=== PATIENT | male | born 1950 | race American Indian/Alaskan Native ===

== ENCOUNTER 2017-05-20 06:21 | Day surgery (SDC) | payer MEDICARE, OTHER ==
[2017-05-20] MEDS ORDERED: ECOTRIN PO ONE (06:52)
[2017-05-20] MEDS ORDERED: NACL 0.9% 500 ML 500 ML IV SCH (07:00)
[2017-05-20 07:33] LABS: Eosinophils % (Auto) 8.7 % (0.0-4.3); Hemoglobin 12.4 gm/dl (11.8-15.2); Mean Corpuscular HGB Conc 32 % (32-34); Mean Corpuscular Volume 80 fl (84-94); Platelet Count 155 K/mm3 (140-440); Red Blood Count 4.85 M/mm3 (3.65-5.03); Red Cell Distribution Width 17.1 % (13.2-15.2); White Blood Count 6.7 K/mm3 (4.5-11.0)
[2017-05-20 07:36] LABS: Mean Corpuscular Hemoglobin 26 pg (28-32)
[2017-05-20 07:41] LABS: INR 1.3 (0.87-1.13)
[2017-05-20 07:51] LABS: Anion Gap 17 mmol/L; BUN/Creatinine Ratio 19.09; Blood Urea Nitrogen 21 mg/dL (9-20); Calcium 8.6 mg/dL (8.4-10.2); Carbon Dioxide 27 mmol/L (22-30); Chloride 96.9 mmol/L (98-107); Glucose 274 mg/dL (75-100); Potassium 4.3 mmol/L (3.6-5.0); Sodium 137 mmol/L (137-145)
[2017-05-20] MEDS ORDERED: HEPARIN/NS 5000 UNIT/500ML(CATH LAB) 1,000 ML IR ONE (08:54)
[2017-05-20] MEDS ORDERED: NITROGLYCERIN SYRINGE 0 ML ONE (08:55)
[2017-05-20] MEDS ORDERED: XYLOCAINE 2% INFILTRATI ONE (08:55)
[2017-05-20] MEDS ORDERED: VERSED ONE (08:55)
[2017-05-20] MEDS ORDERED: SUBLIMAZE ONE (08:55)
[2017-05-20] MEDS ORDERED: PLAVIX PO ONE (09:00)
[2017-05-20] MEDS ORDERED: ULTRAM PO PRN (09:50)
--- NOTE | 2017-05-20 09:54 | Discharge Summary ---
Short Stay Discharge Plan Activity: advance as tolerated Weight Bearing Status: Partial Weight Bearing Diet: low fat, low cholesterol, low salt Wound: keep clean and dry Special Instructions: no heavy lifting (3 days), hold Metformin (48hrs) Follow up with: ALEXANDRE FABIAN MD [Primary Care Provider] - 7 Days MONTSERRAT GEIGER MD [Staff Physician] - 7 Days
--- NOTE | 2017-05-20 10:22 | Cardiac Catherization Report ---
REASON FOR PROCEDURE: Abnormal thallium stress test. PROCEDURE: The patient was prepped and draped in a sterile fashion after informed consent. The right femoral artery was entered using Seldinger technique followed by placement of a 6-Georgian sheath. Selective left and right coronary angiography was performed using #4 right and left Paul catheters. The pigtail catheter was used for left ventricular angiography. The catheters were removed, sheath removed, and hemostasis achieved using manual compression. The patient was returned to the postprocedure unit in stable condition. There were no complications. FINDINGS: HEMODYNAMICS: Left ventricle end diastolic pressure was 27, following coronary angiography. Ascending aortic pressure was 185/79. There was no significant pressure gradient on pullback across the aortic valve. CORONARY ANGIOGRAPHY: There was a calcified, ulcerated focal 50% stenosis of the mid left main coronary artery. The left anterior descending artery and its diagonal branches contained diffuse mild atherosclerosis. The circumflex artery and its obtuse marginal branches contained diffuse mild atherosclerosis. The right coronary artery was dominant. A stent was visible in the entire length of the mid right coronary artery. There was an 80% stenosis of the proximal right coronary artery, representing proximal border restenosis of the previous stent. Following that, there was diffuse moderate in-stent restenosis. Distally, the right coronary artery was subtotally occluded just after the origin of the posterior descending branch. There was faint antegrade filling of a medium sized posterolateral branch as well as left to right collaterals of this posterolateral branch. The left ventricle was moderately dilated. There was moderately severe left ventricular systolic dysfunction, ejection fraction 30-35%. There was hypo to akinesis of the inferior wall. CONCLUSIONS: 1. Multivessel disease, including significant eccentric, calcified stenosis of the mid left main. 2. Ischemic cardiomyopathy, moderate to moderately severe left ventricular systolic dysfunction, ejection fraction 30-35%. RECOMMENDATION: Coronary artery bypass surgery with targets to the LAD, circumflex system, right posterior descending branch, and the right posterior left ventricular branch. JOB# [id number] HANNY/NTS
[2017-05-20] MEDS ORDERED: CATAPRES PO ONE (10:30)
[2017-05-20] MEDS ORDERED: CATAPRES ONE (11:41)
[2017-05-20] MEDS ORDERED: NACL 0.9% 1000 ML 1,000 ML IV SCH (12:00)
[2017-05-20 14:36] VITALS: BP 133/66
== END 2017-05-20 15:00 | disposition home or self-care (01) ==
LOC: OPU 06:21
PROVIDERS: ATTEND Internal Medicine Cardiovascular Disease
DX: I25.10 Atherosclerotic heart disease of native coronary artery without angina pectoris (principal); I10 Essential (primary) hypertension; E11.9 Type 2 diabetes mellitus without complications; I25.2 Old myocardial infarction; E78.5 Hyperlipidemia, unspecified; F15.90 Other stimulant use, unspecified, uncomplicated; I48.91 Unspecified atrial fibrillation; Z79.899 Other long term (current) drug therapy; Z79.01 Long term (current) use of anticoagulants; Z79.84 Long term (current) use of oral hypoglycemic drugs; Z86.79 Personal history of other diseases of the circulatory system; Z95.5 Presence of coronary angioplasty implant and graft; Z86.718 Personal history of other venous thrombosis and embolism; Z98.890 Other specified postprocedural states; Z83.49 Family history of other endocrine, nutritional and metabolic diseases; Z82.49 Family history of ischemic heart disease and other diseases of the circulatory system; Z83.3 Family history of diabetes mellitus
CPT/HCPCS: 36415; 80048; 82962; 85025; 85610; 85730; 93005; 93010; 93458; 96372; C1894; J1644; J2250; J3010; J7030; J7040; J1815; Q9967

== ENCOUNTER 2018-05-22 15:26 | Inpatient (IN) | payer MEDICARE, OTHER ==
[2018-05-22] MEDS ORDERED: CORDARONE IV ONE (16:44)
[2018-05-22] MEDS ORDERED: CARDIZEM IV ONE (16:44)
[2018-05-22] MEDS ORDERED: CARDIZEM/D5W 100MG/100ML 100 MG/100 ML BAG IV ONE (16:45)
[2018-05-22] MEDS ORDERED: LOPRESSOR IV PRN (16:46)
--- NOTE | 2018-05-22 16:57 | Event Note ---
Date: 05/22/18 Admitted from office visit where he presented with rapid atrial flutter 2:1 with V rate 140/min. See office note for detailed H/P.
[2018-05-22] MEDS ORDERED: COUMADIN PO SCH ×2 (17:00→21:00)
[2018-05-22] MEDS ORDERED: CORDARONE 150 MG in D5W 100 ML IV ONE (18:00)
[2018-05-22] MEDS ORDERED: CORDARONE 300 MG in D5W 100 ML IV ONE (18:15)
[2018-05-22 20:06] LABS: Hematocrit 42.1 % (35.5-45.6); Hemoglobin 13.5 gm/dl (11.8-15.2); Mean Corpuscular HGB Conc 32 % (32-34); Mean Corpuscular Hemoglobin 24 pg (28-32); Mean Corpuscular Volume 75 fl (84-94); Platelet Count 218 K/mm3 (140-440); Red Blood Count 5.63 M/mm3 (3.65-5.03)
[2018-05-22 20:17] LABS: INR 1.9 (0.87-1.13)
[2018-05-22 20:57] LABS: Alanine Aminotransferase 47 units/L (7-56); Albumin 3.8 g/dL (3.9-5); BUN/Creatinine Ratio 14; Blood Urea Nitrogen 17 mg/dL (9-20); Calcium 9.1 mg/dL (8.4-10.2); Hemolysis Index 16
[2018-05-22 21:30] LABS: Bilirubin,Direct < 0.2 mg/dL (0-0.2)
[2018-05-22] MEDS: LOPRESSOR PO SCH (22:11)
[2018-05-22] MEDS: CORDARONE PO SCH (22:11)
[2018-05-22] MEDS: PRAVACHOL PO SCH (22:11)
[2018-05-22] MEDS: DIABETA PO SCH (22:11)
[2018-05-22] MEDS: COLCHICINE PO SCH (22:12)
[2018-05-22] MEDS: HumuLIN R SUB-Q SCH (22:14)
[2018-05-22] MEDS: GLUCOPHAGE PO SCH (22:14)
[2018-05-22 22:55] LABS: HDL Cholesterol 32 mg/dL (40-59); LDL Cholesterol,Direct 89 mg/dL (50-130)
[2018-05-23] MEDS: GLUCOPHAGE PO SCH ×2 (08:15→16:54)
[2018-05-23] MEDS: DIABETA PO SCH ×2 (08:15→16:53)
[2018-05-23] MEDS: HumuLIN R SUB-Q SCH ×4 (08:51→22:55)
[2018-05-23] MEDS: COLCHICINE PO SCH ×2 (10:15→22:52)
[2018-05-23] MEDS: K-DUR PO SCH (10:16)
[2018-05-23] MEDS: LASIX PO SCH (10:16)
[2018-05-23] MEDS: CORDARONE PO SCH ×2 (10:16→22:53)
[2018-05-23] MEDS: PLAVIX PO SCH (10:16)
[2018-05-23] MEDS: LOPRESSOR PO SCH ×2 (10:16→22:54)
--- NOTE | 2018-05-23 12:01 | Progress Note ---
Assessment and Plan - Patient Problems (1) Atrial flutter with rapid ventricular response Current Visit: Yes Status: Acute Plan to address problem: We will achieve rate control with metoprolol, amiodarone and Cardizem. Continue Coumadin for stroke prophylaxis. Subjective Date of service: 05/23/18 Interval history: Patient is comfortable, no acute distress. He is atrial flutter with ventricular rate slowed sufficiently while on intravenous Cardizem drip, but for unclear reasons the Cardizem was discontinued this morning which prompted ventricular rate to rise again. Objective Vital Signs Temp Pulse Pulse Resp BP Pulse Ox 05/23/18 10:16 138 H 05/23/18 08:15 138 H 18 142/87 97 05/23/18 08:00 97.7 F 05/23/18 04:32 47 L 103/41 98 05/23/18 04:23 97.9 F 05/23/18 01:27 63 97 05/23/18 01:26 98.3 F 68 20 122/66 94 05/22/18 22:11 142 H 141/90 05/22/18 22:05 97.8 F 144 H 141/90 96 05/22/18 20:10 140 H 20 97 05/22/18 18:45 144 H 05/22/18 18:03 97.8 F 146 H 24 109/75 97 05/22/18 18:00 144 H - Physical Examination General: No Apparent Distress HEENT: Positive: PERRL Neck: Positive: neck supple Cardiac: Positive: irregularly irregular Lungs: Positive: Decreased Breath Sounds Neuro: Positive: Grossly Intact Abdomen: Positive: Soft Skin: Positive: Clear Extremities: Absent: edema - Labs and Meds Cardiac Enzymes 05/22/18 Range/Units 19:36 AST 38 (5-40) units/L Coagulation 05/22/18 Range/Units 19:36 PT 23.0 H (12.2-14.9) Sec. INR 1.90 H (0.87-1.13) Lipids 05/22/18 Range/Units 19:36 Triglycerides 181 H (2-149) mg/dL Cholesterol 128 (50-199) mg/dL HDL Cholesterol 32 L (40-59) mg/dL Cholesterol/HDL Ratio 4.00 % CBC 05/22/18 Range/Units 19:36 WBC 7.7 (4.5-11.0) K/mm3 RBC 5.63 H (3.65-5.03) M/mm3 Hgb 13.5 (11.8-15.2) gm/dl Hct 42.1 (35.5-45.6) % Plt Count 218 (140-440) K/mm3 Comprehensive Metabolic Panel 05/22/18 Range/Units 19:36 Sodium 139 (137-145) mmol/L Potassium 4.2 (3.6-5.0) mmol/L Chloride 97.9 L (98-107) mmol/L Carbon Dioxide 24 (22-30) mmol/L BUN 17 (9-20) mg/dL Creatinine 1.2 (0.8-1.5) mg/dL Glucose 119 H (75-100) mg/dL Calcium 9.1 (8.4-10.2) mg/dL Direct Bilirubin < 0.2 (0-0.2) mg/dL Indirect Bilirubin 0.2 mg/dL AST 38 (5-40) units/L ALT 47 (7-56) units/L Alkaline Phosphatase 59 (35-129) units/L Total Protein 6.6 (6.3-8.2) g/dL Albumin 3.8 L (3.9-5) g/dL
[2018-05-23] MEDS: CARDIZEM PO SCH ×2 (14:15→22:54)
[2018-05-23] MEDS ORDERED: COUMADIN PO SCH ×3 (17:00→21:30)
[2018-05-23] MEDS: PRAVACHOL PO SCH (22:53)
[2018-05-24] MEDS: CARDIZEM PO SCH ×3 (06:20→22:54)
[2018-05-24] MEDS: HumuLIN R SUB-Q SCH ×4 (08:15→22:55)
[2018-05-24] MEDS: CORDARONE PO SCH ×2 (09:00→22:54)
[2018-05-24] MEDS: PLAVIX PO SCH (09:00)
[2018-05-24] MEDS: COLCHICINE PO SCH ×2 (09:00→22:52)
[2018-05-24] MEDS: GLUCOPHAGE PO SCH ×2 (09:00→17:37)
[2018-05-24] MEDS: LOPRESSOR PO SCH ×2 (09:00→22:52)
[2018-05-24] MEDS: DIABETA PO SCH ×2 (09:00→17:37)
[2018-05-24] MEDS: LASIX PO SCH (09:00)
[2018-05-24] MEDS: K-DUR PO SCH (09:00)
[2018-05-24 09:08] LABS: INR 1.9 (0.87-1.13)
--- NOTE | 2018-05-24 11:31 | Progress Note ---
Assessment and Plan - Patient Problems (1) Atrial flutter with rapid ventricular response Current Visit: Yes Status: Acute Plan to address problem: Continue rate control, oral anticoagulation. If atrial flutter persists, he may benefit from a MARTHA guided DC cardioversion. Subjective Date of service: 05/24/18 Interval history: Patient looks and feels better, remains in atrial flutter but ventricular rate is much better controlled on current medications. Objective Vital Signs Temp Pulse Pulse Resp BP Pulse Ox 05/24/18 11:23 85 05/24/18 08:51 97.1 F L 134 H 18 131/83 97 05/24/18 06:20 95 H 128/68 05/24/18 03:44 97.8 F 95 H 20 128/68 98 05/23/18 23:46 97.4 F L 117 H 20 118/49 96 05/23/18 22:54 128 H 136/68 05/23/18 22:00 100 H 18 05/23/18 19:28 97.8 F 128 H 20 136/68 97 05/23/18 19:25 116 H 05/23/18 17:18 131 H 20 117/66 97 05/23/18 16:00 97.8 F 05/23/18 14:15 132 H 05/23/18 12:13 128 H 20 128/85 98 05/23/18 12:00 97.3 F L - Physical Examination General: No Apparent Distress HEENT: Positive: PERRL Neck: Positive: neck supple Cardiac: Positive: irregularly irregular Lungs: Positive: Decreased Breath Sounds Neuro: Positive: Grossly Intact Abdomen: Positive: Soft Skin: Positive: Clear Extremities: Absent: edema - Labs and Meds Coagulation 05/24/18 Range/Units 08:31 PT 23.0 H (12.2-14.9) Sec. INR 1.90 H (0.87-1.13)
[2018-05-24] MEDS: PRAVACHOL PO SCH (22:54)
[2018-05-25] MEDS: CARDIZEM PO SCH ×3 (06:37→22:05)
[2018-05-25] MEDS: HumuLIN R SUB-Q SCH ×4 (08:32→22:17)
[2018-05-25] MEDS: DIABETA PO SCH ×2 (08:33→17:26)
[2018-05-25] MEDS: GLUCOPHAGE PO SCH ×2 (08:33→17:26)
[2018-05-25] MEDS: CORDARONE PO SCH ×2 (09:17→22:05)
[2018-05-25] MEDS: K-DUR PO SCH (09:17)
[2018-05-25] MEDS: COLCHICINE PO SCH ×2 (09:17→22:05)
[2018-05-25] MEDS: PLAVIX PO SCH (09:17)
[2018-05-25] MEDS: LASIX PO SCH (09:18)
[2018-05-25] MEDS: LOPRESSOR PO SCH ×2 (09:18→22:00)
[2018-05-25] MEDS ORDERED: HURRICAINE ONE 20% TOPICAL SPRAY MM (12:41)
[2018-05-25] MEDS ORDERED: HURRICAINE ONE 20% TOPICAL SPRAY MM NR (13:00)
[2018-05-25] MEDS ORDERED: VERSED ONE (13:06)
[2018-05-25] MEDS ORDERED: SUBLIMAZE ONE ×2 (13:07→13:30)
[2018-05-25] MEDS ORDERED: DIPRIVAN 10 MG/ML IV ONE ×4 (13:07→13:30)
[2018-05-25] MEDS ORDERED: NACL 0.9% 1000 ML 1,000 ML ONE (13:14)
[2018-05-25] MEDS ORDERED: SUBLIMAZE IV ONE (13:30)
[2018-05-25] MEDS ORDERED: VERSED IV ONE (13:30)
[2018-05-25] MEDS ORDERED: LOPRESSOR ONE (14:35)
[2018-05-25] MEDS ORDERED: LOPRESSOR PO ONE (14:38)
--- NOTE | 2018-05-25 14:38 | Anesthesia Day of Surgery ---
Anesthesia Day of Surgery - Day of Surgery Patient Examined: Yes Patient H&P Reviewed: Yes Patient is NPO: Yes
--- NOTE | 2018-05-25 14:38 | Anesthesia Consultation ---
Anesthesia Consult and Med Hx Date of service: 05/25/18 - Airway Anesthetic Teeth Evaluation: Poor ROM Head & Neck: Adequate Mental/Hyoid Distance: Inadequate Mallampati Class: Class IV Intubation Access Assessment: Possibly Difficult - Pulmonary Exam CTA: Yes - Cardiac Exam Cardiac Exam: No Murmur (tacchycardia) - Pre-Operative Health Status ASA Pre-Surgery Classification: ASA3 Proposed Anesthetic Plan: General, MAC - Pulmonary Hx Smoking: Yes (Quit 1993) SOB: Yes Hx Sleep Apnea: Yes - Cardiovascular System Hx Hypertension: Yes Hx Coronary Artery Disease: Yes Hx Heart Attack/AMI: Yes (NE 2001, S/P CABG) Hx Angina: No Hx Percutaneous Transluminal Coronary Angioplasty (PTCA): Yes Hx Cardia Arrhythmia: Yes (atrial fibrillation) Hx Peripheral Vascular Disease: Yes - Central Nervous System Hx Seizures: No CVA: No Hx Back Pain: Yes Hx Psychiatric Problems: No - Gastrointestinal Hx Gastroesophageal Reflux Disease: Yes - Endocrine Hx Renal Disease: (kidney stones) Hx Non-Insulin Dependent Diabetes: Yes (Janumet, Glyburide) Hx Thyroid Disease: No - Hematic Hx Anemia: Yes - Other Systems Hx Alcohol Use: Yes (1-2 WEEKLY) Hx Substance Use: No Hx Cancer: No Hx Obesity: Yes (BMI= 46)
[2018-05-25] MEDS ORDERED: NEO SYNEPHRINE/NS Syringe(OR USE) IV ONE ×2 (17:00→17:30)
[2018-05-25] MEDS: PRAVACHOL PO SCH (22:04)
[2018-05-26] MEDS: HumuLIN R SUB-Q SCH ×2 (08:03→12:17)
[2018-05-26] MEDS: CARDIZEM PO SCH (08:11)
[2018-05-26] MEDS: GLUCOPHAGE PO SCH (08:17)
[2018-05-26] MEDS: DIABETA PO SCH (08:17)
[2018-05-26] MEDS: LOPRESSOR PO SCH (10:01)
[2018-05-26] MEDS: LASIX PO SCH (10:01)
[2018-05-26] MEDS: COLCHICINE PO SCH (10:01)
[2018-05-26] MEDS: PLAVIX PO SCH (10:01)
[2018-05-26] MEDS: CORDARONE PO SCH (10:02)
[2018-05-26] MEDS: K-DUR PO SCH (10:02)
--- NOTE | 2018-05-26 12:39 | Post Anesthesia Evaluation ---
- Post Anesthesia Evaluation Patient Participated: Yes Airway Patent: Yes Stable Respiratory Function: Yes Nausea/Vomiting: No Temp > 96.8F: Yes Pain Manageable: Yes Adequeate Hydration: Yes Anesthesia Complications: Yes (hypotension and hypoxia during procedure. No post procedureal squelae seen) Block Receding Appropriately: Not Applicable Patient on Ventilator: No
--- NOTE | 2018-05-26 12:42 | Discharge Summary ---
Providers - Providers Date of Admission: 05/22/18 17:17 Date of discharge: 05/26/18 Attending physician: GISELL GEIGER Primary care physician: ALEXANDRE FABIAN Hospitalization Condition: Good Hospital course: 68yr old male with a history of coronary artery disease with 3 way coronary bypass grafting, ischemic cardiomyopathy, peripheral vascular disease with remote peripheral vascular bypass grafting, on Warfarin for oral anticoagulation who was admitted from the outpatient setting with new onset rapid atrial flutter. Despite treatment with IV diltiazem and amiodarone his atrial flutter persists. His blood pressure remained stable. He has a normal TSH. Subsequently, he required a MARTHA guided cardioversion back to sinus rhythm. Post cardioversion, he has remained in a stable sinus rhythm. Patient denies shortness of breath, chest pain and palpitations and is ready for discharge home today. Upon discharge, Amiodarone 200mg twice daily and Cardizem CD 240mg daily will be added to his medication regimen. 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 Disposition: TO HOME OR SELFCARE Core Measure Documentation - Palliative Care Palliative Care/ Comfort Measures: Not Applicable - Core Measures Any of the following diagnoses?: history only Exam - Constitutional Vitals: Temp Pulse Resp BP Pulse Ox 98.4 F 75 20 121/61 96 05/26/18 07:57 05/26/18 10:01 05/26/18 07:57 05/26/18 10:01 05/26/18 07:57 General appearance: Present: no acute distress - EENT Eyes: Present: PERRL - Respiratory Respiratory effort: normal - Cardiovascular Rhythm: regular Heart Sounds: Present: S1 & S2 Plan Activity: advance as tolerated Diet: low fat, low cholesterol, low salt Follow up with: ALEXANDRE FABIAN MD [Primary Care Provider] - 7 Days MONTSERRAT GEIGER MD [Staff Physician] - 7 Days Forms: Warfarin Discharge Instruction Prescriptions: Amiodarone [Cordarone 200 MG TAB] 200 mg PO BID #60 tablet Diltiazem Cd [Cardizem Cd] 240 mg PO QDAY #30 cap
[2018-05-26 12:53] VITALS: BP 109/56
[2018-05-26] MEDS ORDERED: COUMADIN PO SCH (17:00)
== END 2018-05-26 13:50 | disposition home or self-care (01) | DRG 309 ==
LOC: 4A 15:26 → UNDOADMIN 15:26 → 4A 17:17
PROVIDERS: ADMIT Internal Medicine Cardiovascular Disease; ATTEND Internal Medicine Cardiovascular Disease
PROC: 5A2204Z Restoration of Cardiac Rhythm, Single (ICD-10-PCS; principal; 2018-05-25)
DX: I48.92 Unspecified atrial flutter (principal); Z68.41 Body mass index [BMI] 40.0-44.9, adult; I82.509 Chronic embolism and thrombosis of unspecified deep veins of unspecified lower extremity; G47.30 Sleep apnea, unspecified; I10 Essential (primary) hypertension; I25.10 Atherosclerotic heart disease of native coronary artery without angina pectoris; I48.91 Unspecified atrial fibrillation; K21.9 Gastro-esophageal reflux disease without esophagitis; E66.9 Obesity, unspecified; E11.51 Type 2 diabetes mellitus with diabetic peripheral angiopathy without gangrene; R00.0 Tachycardia, unspecified; R94.31 Abnormal electrocardiogram [ECG] [EKG]; I25.5 Ischemic cardiomyopathy; I25.2 Old myocardial infarction; Z95.1 Presence of aortocoronary bypass graft; Z87.891 Personal history of nicotine dependence; Z87.442 Personal history of urinary calculi; Z72.89 Other problems related to lifestyle; Z95.5 Presence of coronary angioplasty implant and graft
CPT/HCPCS: 36415; 80048; 80061; 80074; 82962; 83735; 84443; 85027; 85610; 93005; 93010; 93312; 93320; 93325; A9270-GY; J0282; J1815; J2250; J2370; J2704; J3010; J7030